=== PATIENT | male | born 1995 | race Caucasian/White ===

== ENCOUNTER 2016-11-22 21:02 | Emergency (ER) | payer OTHER ==
[2016-11-22 21:07] VITALS: BP 149/91; PULSE 84; BMI 24.8
[2016-11-22] MEDS ORDERED: IBUPROFEN 600 MG TABLET (FP) PO ONE (21:28)
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
== END 2016-11-22 22:26 | disposition home or self-care (01) ==
LOC: JERFT 21:02
DX: S43.52XA Sprain of left acromioclavicular joint, initial encounter (principal); S13.4XXA Sprain of ligaments of cervical spine, initial encounter; S20.212A Contusion of left front wall of thorax, initial encounter; V43.52XA Car driver injured in collision with other type car in traffic accident, initial encounter; Y92.488 Other paved roadways as the place of occurrence of the external cause; W22.12XA Striking against or struck by front passenger side automobile airbag, initial encounter; Y93.89 Activity, other specified; Y99.9 Unspecified external cause status
CPT/HCPCS: 73030-TC-LT; 99281-25

== ENCOUNTER 2017-01-28 22:19 | Emergency (ER) | payer OTHER ==
[2017-01-28 22:24] VITALS: BP 129/78; PULSE 75; TEMP 99; BMI 25.8
[2017-01-28] MEDS ORDERED: AZITHROMYCIN 1 GM PACKET PO ONE (22:51)
--- NOTE | 2017-01-28 22:53 | PDOC ---
History of Present Illness - General Chief Complaint: Urinary Problem Stated Complaint: PERSONAL Time Seen by Provider: 01/28/17 22:48 History Source: Patient Exam Limitations: No Limitations - History of Present Illness Initial Comments: 01/28/17 23:53 21-year-old male with no medical history presents to the emergency department with his girlfriend requesting for Chlamydia/gonorrhea treatment. Patient states his girlfriend of approximately one year was recently diagnosed with chlamydia. Patient denies any fever, chills, nausea/vomiting, abdominal pains, flank pains, urinary symptoms: Burning upon urination/Frequency/urgency/ hesitancy, hematuria. White/cloudy/watery discharge from the tip of his penis, inflamed/tender and pain around his testicles. Patient adamantly refuses STD testing but insists on the treatment. Past History - Past Medical History Allergies/Adverse Reactions: Allergies Allergy/AdvReac Type Severity Reaction Status Date / Time No Known Allergies Allergy Verified 01/28/17 22:24 Home Medications: Ambulatory Orders Cyclobenzaprine HCl [Flexeril 10 mg] 10 mg PO BID PRN #5 tablet 11/22/16 Other medical history: denies - Suicide/Smoking/Psychosocial Hx Smoking Status: No Smoking History: Former smoker Have you smoked in the past 12 months: No Number of Cigarettes Smoked Daily: 1 Information on smoking cessation initiated: No Hx Alcohol Use: No Substance Use Type: None Review of Systems - Review of Systems Able to Perform ROS?: Yes Comments:: 01/28/17 23:55 CONSTITUTIONAL: Absent: fever, chills, diaphoresis, generalized weakness, malaise, loss of appetite GASTROINTESTINAL: Absent: abdominal pain, abdominal distension, nausea, vomiting, diarrhea, constipation, melena, hematochezia GENITOURINARY: Absent: dysuria, frequency, urgency, hesitancy, hematuria, flank pain, genital pain SKIN: Absent: rash, itching, pallor Is the patient limited [place] Citizen proficient: No *Physical Exam - Vital Signs Last Vital Signs Temp Pulse Resp BP Pulse Ox 99 F 75 18 129/78 99 01/28/17 22:21 01/28/17 22:21 01/28/17 22:21 01/28/17 22:21 01/28/17 22:21 - Physical Exam Comments: 01/28/17 23:55 GENERAL: Well developed, well nourished. Awake and alert. No acute distress. HEENT: Normocephalic, atraumatic. PERRLA, EOMI. No conjunctival pallor. Sclera are non- icteric. Moist mucous membranes. Oropharynx is clear. NECK: Supple. Full ROM. No JVD. Carotid pulses 2+ and symmetric, without bruits. No thyromegaly. No lymphadenopathy. CARDIOVASCULAR: Regular rate and rhythm. No murmurs, rubs, or gallops. Distal pulses are 2+ and symmetric. PULMONARY: No evidence of respiratory distress. Lungs clear to auscultation bilaterally. No wheezing, rales or rhonchi. ABDOMINAL: Soft. Non-tender. Non-distended. No rebound or guarding. No organomegaly. Normoactive bowel sounds. MUSCULOSKELETAL Normal range of motion at all joints. No bony deformities or tenderness. No CVA tenderness. EXTREMITIES: No cyanosis. No clubbing. No edema. No calf tenderness. SKIN: Warm and dry. Normal capillary refill. No rashes. No jaundice. *DC/Admit/Observation/Transfer Diagnosis at time of Disposition: STD (male) - Discharge Dispostion Condition at time of disposition: Stable Admit: No - Referrals Referrals: Karen Amin MD [Staff Physician] - - Patient Instructions Printed Discharge Instructions: Facts About Sexually Transmitted Infections Additional Instructions: Follow up with the with infectious disease physician deficits listed on your discharge States sex is always advisable.
[2017-01-28] MEDS ORDERED: cefTRIAXone SODIUM 1 GM VIAL ONE (23:38)
[2017-01-28] MEDS ORDERED: AZITHROMYCIN 250 MG TABLET ONE (23:38)
== END 2017-01-29 00:09 | disposition home or self-care (01) ==
LOC: JER 22:19 → JERFT 22:19 → JER 01-29 00:09
DX: Z20.2 Contact with and (suspected) exposure to infections with a predominantly sexual mode of transmission (principal)
CPT/HCPCS: 99281-25